=== PATIENT | male | born 1965 | race Caucasian/White ===

== ENCOUNTER 2021-03-11 11:14 | Emergency (ER) | payer OTHER, SELFPAY ==
[2021-03-11] VITALS (9 sets, daily range): BP systolic 140–162; BP diastolic 77–92; PULSE 68–78; RESP 13–20; TEMP 36.4–36.8; O2SAT 98–99
--- NOTE | ~2021-03-11 | CT_ITS ---
EXAMINATION: CT brain wo con, CT orbit BI wo con DATE: 03/11/2021 12:05 INDICATION: Fall with trauma to the left eye and loss of left-sided vision. TECHNIQUE: Computed tomography (CT) of the head was performed without intravenous contrast. Sagittal and coronal reconstructions were performed. The mA was adjusted according to patient size. Iterative reconstruction technique was employed. The dose-length product was 681.00 mGy-cm. 2. CT of the orbits was performed without intravenous contrast. Sagittal and coronal reconstructions were performed. Automated exposure control and iterative reconstruction technique were employed. The dose length product was 200.33 mGy-cm. COMPARISON: None FINDINGS: Head CT: No calvarial fracture. No acute intracranial hemorrhage, acute infarction or abnormal extra axial flu id collection. Ventricles are normal and symmetric. No mass/mass effect. The mastoid air cells and mi ddle ear cavities are clear. Orbits: Globular region of increased attenuation within the vitreous humor of the left globe consistent with intraocular hemorrhage. Preseptal and mild post septal inflammatory stranding at the left orbit. No m axillofacial fractures. Mild mucosal thickening in the left maxillary and bilateral ethmoid sinuses. Large mucous retention cyst occupying a significant portion of the right maxillary sinus. Prior antra l window procedure with defect in the medial wall of the right maxillary sinus. Polypoid mucosal thic kening at the posterior right nasopharynx. IMPRESSION: 1. Intraocular hemorrhage within the left globe. No maxillofacial fractures. 2. Normal brain. No acute intracranial process. Reviewed, dictated and finalized at location A. IMPRESSION: 1. Intraocular hemorrhage within the left globe. No maxillofacial fractures. 2. Normal brain. No acute intracranial process.
--- NOTE | 2021-03-11 11:53 | ED.FALL ---
HPI - Fall General Chief Complaint: Fall Stated Complaint: GROUND LEVEL FALL- L EYE SWELLING Time Seen by Provider: 03/11/21 11:43 Source: patient and RN notes reviewed Mode of arrival: ambulatory Limitations: no limitations History of Present Illness HPI Narrative: Patient is 55 years old white male presents with pain and blindness of the left eye. Patient work-up at 3 AM to go to the bathroom tripped and fell. Hit the left eye on armchair. No loss of consciousness no other injuries. Work-up today unable to see.. Patient does not take medicine at home, not in any blood thinner, had alcohol last night. Related Data Home Medications Medication Instructions Recorded Confirmed No Home Medications 03/11/21 03/11/21 Allergies Allergy/AdvReac Type Severity Reaction Status Date / Time No Known Allergies Allergy Verified 03/11/21 11:54 Review of Systems Review of Systems: Narrative: CONSTITUTIONAL: Denies fever, chills, or sweats. EYES: Denies visual changes, redness, or discharge. ENT: Denies rhinorrhea, congestion, sore throat, or otalgia. CARDIOVASCULAR: Denies chest pain, palpitations, or edema. RESPIRATORY: Denies cough or dyspnea. GASTROINTESTINAL: Denies abdominal pain, nausea, vomiting, or diarrhea. GENITOURINARY: Denies dysuria or hematuria. SKIN: Denies rash or itching. MUSCULOSKELETAL: Denies back pain, joint pain, or myalgia. NEUROLOGIC: Denies headache, numbness, or weakness. PSYCHIATRIC: Denies anxiety or depression. PMFSH Social History Social History Gender identity (if verbalized by the patient): Male Exam Narrative: Exam Narrative: General appearance: Well-developed, well-nourished Skin: Normal color Head: Normocephalic, nontraumatic Eyes: Left subconjunctival hemorrhage, extensive blood at the anterior chamber, unable to visualize the pupil, dried blood of the upper and lower eyelids with diffuse bruises. Patient can see hand motion on light Neck: Supple, nontender Chest and respiratory: Airway patent, no respiratory distress, no accessory muscle use Heart: Regular rate/rhythm Musculoskeletal: Normal range of motion, nontender back Neurologic: Alert and oriented ?3, [employer] is normal as tested, no gross motor deficit Course Course Emergency Course: Stable Consultations Consultation #1: DR ERICKSON, [facility] fabric awning repairer Date: 03/11/21 Time: 12:40 Consultation #2: DR WRIGHT, [facility] ED Date: 03/11/21 Time: 12:41 Vital Signs Vital signs: Vital Signs Temperature 36.4 C L 03/11/21 11:40 Pulse Rate 76 03/11/21 11:40 Respiratory Rate 20 03/11/21 11:40 Blood Pressure 140/79 03/11/21 11:40 Pulse Oximetry 99 03/11/21 11:40 Temperature 36.4 C L 03/11/21 11:40 Pulse Rate 76 03/11/21 11:40 Respiratory Rate 20 03/11/21 11:40 Blood Pressure 140/79 03/11/21 11:40 Pulse Oximetry 99 03/11/21 11:40 MDM - Fall MDM Narrative Medical decision making narrative: Blunt trauma to left eye Physical exam showed hyphema more than one third of the anterior chamber, patient unable to see hand motion, cannot rule out associated eye injury. Transfer to a trauma center is my plan. A tetanus shot was ordered. Differential Diagnosis Differential diagnosis: Likely concussion without loss of consciousness and other (Left eye blunt trauma, hyphema,) Imaging Data Radiologist's impression: Impressions Head CT 03/11/21 12:17 IMPRESSION: 1. Intraocular hemorrhage within the left globe. No maxillofacial fractures. 2. Normal brain. No acute intracranial process. Orbit CT 03/11/21 12:17 IMPRESSION: 1. Intraocular hemor
[2021-03-11] MEDS: TETANUS,DIPHTHERIA,AC PERTUSSIS ADULT (0.5 ML) BOOSTRIX IM (12:14)
== END 2021-03-11 13:08 | disposition short-term general hospital (02) ==
PROVIDERS: Emergency Provider Emergency Medicine; PCP Internal Medicine
DX: S05.12XA Contusion of eyeball and orbital tissues, left eye, initial encounter (principal); Z23 Encounter for immunization; W01.190A Fall on same level from slipping, tripping and stumbling with subsequent striking against furniture, initial encounter
CPT/HCPCS: 70450; 70480; 90471; 90715; 99284; 99285